=== PATIENT | male | born 1965 | race Caucasian/White ===

== ENCOUNTER 2022-06-12 09:29 | Emergency (ER) | payer OTHER, SELFPAY ==
[2022-06-12] MEDS ORDERED: Boostrix 0.5 ML (Tdap) VIAL (>/=7 yrs of age) ONE (09:50)
[2022-06-12] MEDS ORDERED: Lidocaine 1% PF 5 ML VIAL ONE (11:16)
[2022-06-12] MEDS ORDERED: Bacitracin 1 PK ONE (11:45)
== END 2022-06-12 12:25 | disposition home or self-care (01) ==
LOC: ERS 09:29
DX: S81.812A Laceration without foreign body, left lower leg, initial encounter (principal); I10 Essential (primary) hypertension; Z23 Encounter for immunization; W26.8XXA Contact with other sharp object(s), not elsewhere classified, initial encounter
CPT/HCPCS: 90471; 90715